=== PATIENT | female | born 1990 | race African-American/Black ===

== ENCOUNTER 2025-04-15 15:17 | Emergency (ER) | payer SELFPAY ==
[~2025-04-15] VITALS: Ht 165.1 cm; Wt 88.6 kg
[2025-04-15] MEDS ORDERED: BACT800T5 PO (19:21)
[2025-04-15] MEDS: TRIMETHOPRIM/SULFAMETH 80/400 MG TAB PO ONE (19:33)
[2025-04-15] MEDS: PERCOCET 5MG/325MG TAB PO ONE (19:33)
[2025-04-15 19:36] VITALS: BP 147/86; TEMP 99.3; O2SAT 100
== END 2025-04-15 19:38 | disposition home or self-care (01) ==
LOC: M ED 15:17
DX: L02.31 Cutaneous abscess of buttock (principal)